=== PATIENT | female | born 1985 | race Caucasian/White ===

== ENCOUNTER 2017-10-30 21:26 | Emergency (ER) | payer BC ==
[2017-10-30 21:34] VITALS: BP 178/86
--- NOTE | 2017-10-30 22:52 | DR.GENAD ---
HPI - HPI Comment HPI Comment: NO FEVER. NOT ABLE TO EAT ALSO. - Complaint/Symptoms Chief Complaint Doctors Comments: DENTAL EXTRACTION. NAUSEA AND VOMITING. NOT HOLDING DOWN MEDICATION. Chief Complaint:: Unable to keep fluids down Self Treatment fo Chief Complaint: Patient taken x3 Hydrocodone 7.5 since tooth pulled yesterday. - Nurses notes reviewed Nurses Notes Review: Yes - Source History Provided: Patient - Mode of Arrival Mode of Arrival: Ambulatory - Timing Onset of Chief Complaint: 10/29/17 Came on: Suddenly - Duration Duration: Constant Duration: Days - Severity Severity: Moderate PMH - PMH Past Medical History: Yes Past Medical History: Migraines Past Surgical History: Yes Past Surgical History Comment: Dental work only - Family History History of Family Medical Conditions: Yes Family Medical History Comment: Mother: DM, Ovarian CA. Father: CHF - Social History Does patient currently use any type of tobacco product: No Have you used tobacco products in the last 12 months: No Type of Tobacco Use: None Does any household member use tobacco: No Alcohol Use: None Do you use any recreational Drugs:: No Lives With: Spouse Lives Where: Home - infectious screening In the last 2 months have you had wt loss of >10#?: NO Have you had fever, night sweats or hemotysis?: No Have you traveled outside the country in the last 6 months?: No ROS - Review of Systems Constitutional: Weakness Eyes: No Symptoms Reported. negative: Eye Pain, Discharge ENTM: No Symptoms Reported, Mouth Pain, Mouth Swelling. negative: Ear Pain, Nose Discharge, Nose Congestion, Loose Teeth (TOOTH EXTRACTION) Respiratoy: No Symptoms Reported Cardiovascular: No Symptoms Reported Gastrointestinal/Abdominal: No Symptoms Reported Genitourinary: No Symptoms Reported Neurological: No Symptoms Reported Musculoskeletal: No Symptoms Reported Integumentary: No Symptoms Reported Hematologic/Lymphatic: No Symptoms Reported Endocrine: No Symptoms Reported All Other Systems: Reviewed and Negative PE - Vital Signs Vitals: Temperature 98 F Pulse Rate 98 Respiratory Rate 18 Blood Pressure 178/86 O2 Sat by Pulse Oximetry 98 - General Limitations: No Limitations General Appearance: Alert - Head Head Exam: Normal Inspection - Eyes Eye exam: Normal Appearance - ENT ENT Exam: Normal External Ear Exam External Ear Exam: Normal External Inspection TM/Canal Exam: Bilateral Normal Nose Exam: Normal Nose Exam Mouth Exam: Other (TENDERNESS OVER AREA OF EXTRACTION.). negative: Trismus Throat Exam: Normal Inspection - Neck Neck Exam: Normal Inspection - Chest Chest Inspection: Symmetric Chest Wall Rise - Respiratory Respiratory Exam: Normal Lung Sounds Bilat Respiratory Exam: Bilateral Clear to Auscultation - Cardiovascular Cardiovascular Exam: Regular Rate, Normal Rhythm, Normal Heart Sounds - Abdominal Exam Abdominal Exam: Normal Bowel Sounds, Soft. negative: Tenderness - Extremities Extremities Exam: Normal Inspection - Back Back Exam: Normal Inspection - Neurologic Neurological Exam: Alert, Oriented X3 - Psychiatric Psychiatric Exam: Normal Affect, Normal Mood - Skin Skin Exam: Erythema Course - Treatment Treatment: DENTAL PAIN, NAUSEA/VOMITING - Education/Counseling Education/Counseling: Patient, Family, Education Educated On: Diagnosis, Needs for Follow Up ROR - Labs Reviewed Laboratory Results Reviewed?: Yes Result Diagrams: 10/30/17 22:10 10/30/17 23:10 Laboratory: WBC 14.4 X10^3/uL (3.6-10.0) H 10/30/17 22:10 RBC 4.64 X10^6/uL (3.5-5.4) 10/30/17 22:10 Hgb 13.1 g/dL (12.0-16.0) 10/30/17 22:10 Hct 39.1 % (36.0-47.0) 10/30/17 22:10 MCV 84.2 fL (80.0-100.0) 10/30/17 22:10 MCH 28.3 pg (27.0-34.0) 10/30/17 22:10 MCHC 33.6 g/dL (33.0-35.0) 10/30/17 22:10 RDW 13.9 % (11.6-16.5) 10/30/17 22:10 Plt Count 263 X10^3/uL (150.0-450.0) 10/30/17 22:10 MPV 8.8 fL (7.4-11.0) 10/30/17 22:10 Neut % 83.1 % (42.0-75.0) H 10/30/17 22:10 Lymph % 12.8 % (21.0-51.0) L 10/30/17 22:10 [place] % 3.3 % (0.0-13.0) 10/30/17 22:10 Eos % 0.2 % (0.9-2.9) L 10/30/17 22:10 Baso % 0.6 % (0.2-1.0) 10/30/17 22:10 Neut # 12.0 x10^3/uL (2.2-4.8) H 10/30/17 22:10 Lymph # 1.8 X10^3/uL (1.3-2.9) 10/30/17 22:10 [place] # 0.5 x10^3/uL (0.3-0.8) 10/30/17 22:10 Eos # 0.0 x10^3/uL (0.0-0.2) 10/30/17 22:10 Baso # 0.1 X10^3/uL (0.0-0.1) 10/30/17 22:10 Absolute Nucleated RBC 0.1 /100WBC 10/30/17 22:10 Sodium 141 mmol/L (136-145) 10/30/17 23:10 Corrected Sodium TNP 10/30/17 23:10 Potassium 3.8 mmol/L (3.5-5.1) 10/30/17 23:10 Chloride 103 mmol/L (98-107) 10/30/17 23:10 Carbon Dioxide 25.2 mmol/L (21-32) 10/30/17 23:10 BUN 7 mg/dL (7-18) 10/30/17 23:10 Creatinine 0.88 mg/dL (0.55-1.02) 10/30/17 23:10 Est GFR (MDRD) Af Amer > 60 (>60) 10/30/17 23:10 Est GFR (MDRD) Non-Af > 60 (>60) 10/30/17 23:10 Glucose 100 mg/dL (65-99) H 10/30/17 23:10 Calcium 9.0 mg/dL (8.5-10.1) 10/30/17 23:10 Corrected Calcium TNP 10/30/17 23:10 Total Bilirubin 0.30 mg/dL (0.2-1.0) 10/30/17 23:10 AST 16 Units/L (15-37) 10/30/17 23:10 ALT 22 Units/L (12-78) 10/30/17 23:10 Alkaline Phosphatase 103 Units/L (46-116) 10/30/17 23:10 Total Protein 8.3 g/dL (6.4-8.2) H 10/30/17 23:10 Albumin 3.9 g/dL (3.4-5.0) 10/30/17 23:10 Globulin 4.4 g/dL (2.5-4.5) 10/30/17 23:10 Albumin/Globulin Ratio 0.9 Ratio (1.1-2.1) L 10/30/17 23:10 HCG, Qual Negative <10 mIU/mL 10/31/17 00:05 Specimen Type Clean catch urine 10/31/17 00:45 Urine Color Yellow (YELLOW) 10/31/17 00:45 Urine Appearance Slightly hazy (CLEAR) 10/31/17 00:45 Urine pH 6.5 (5.0 - 8.0) 10/31/17 00:45 Ur Specific [place] 1.015 (1.000-1.030) 10/31/17 00:45 Urine Protein Negative (NEGATIVE) 10/31/17 00:45 Urine Glucose (UA) Negative (NEGATIVE) 10/31/17 00:45 Urine Ketones 3+ (NEGATIVE) 10/31/17 00:45 Urine Occult Blood Negative (NEGATIVE) 10/31/17 00:45 Urine Nitrite Negative (NEGATIVE) 10/31/17 00:45 Urine Bilirubin Negative (NEGATIVE) 10/31/17 00:45 Urine Urobilinogen Normal (NORMAL) 10/31/17 00:45 Ur Leukocyte Esterase Negative (NEGATIVE) 10/31/17 00:45 Urine RBC 0-3 /HPF (NEGATIVE) 10/31/17 00:45 Urine WBC 0-3 /HPF (NEGATIVE) 10/31/17 00:45 Ur Squamous Epith Cells Few /HPF (NEGATIVE) 10/31/17 00:45 Urine Bacteria Negative /HPF (NEGATIVE) 10/31/17 00:45 Ur Culture Indicated? No/not indicated 10/31/17 00:45 - Diagnosis Discharge Problem: Gingivitis, Nausea & vomiting, Pain, dental - Discharge Plan Disposition: HOME, SELF-CARE Condition: Stable Prescriptions: Amoxicillin [Amoxil 875 mg] 875 mg PO Q12H #20 tab Ondansetron [Zofran ODT 8 mg] 8 mg PO Q8H PRN #12 tab PRN Reason: Nausea/Vomiting - Follow ups/Referrals Follow ups/Referrals: Fran Vieira [Primary Care Provider] - 3 days - Instructions Instructions: Dental Caries, [id number], Nausea and Vomiting, Adult, Easy-to- Read Additional Instructions: RETURN TO ED IF WORSE.
[2017-10-30] MEDS ORDERED: ZOFRAN INJ 4 MG VIAL IM ONE (22:54)
[2017-10-30] MEDS ORDERED: ZOFRAN INJ 4 MG VIAL ONE (23:14)
[2017-10-30 23:35] LABS: BASOPHILS # (AUTO) 0.1 X10^3/uL (0.0-0.1); BASOPHILS % (AUTO) 0.6 % (0.2-1.0); EOSINOPHILS % (AUTO) 0.2 % (0.9-2.9); HEMATOCRIT 39.1 % (36.0-47.0); HEMOGLOBIN 13.1 g/dL (12.0-16.0); LYMPHOCYTES # (AUTO) 1.8 X10^3/uL (1.3-2.9); LYMPHOCYTES % (AUTO) 12.8 % (21.0-51.0); MEAN CORPUSCULAR HEMOGLOBIN 28.3 pg (27.0-34.0); MEAN CORPUSCULAR HGB CONC 33.6 g/dL (33.0-35.0); MEAN CORPUSCULAR VOLUME 84.2 fL (80.0-100.0); MEAN PLATELET VOLUME 8.8 fL (7.4-11.0); MONOCYTES # (AUTO) 0.5 x10^3/uL (0.3-0.8); MONOCYTES % (AUTO) 3.3 % (0.0-13.0); NEUTROPHILS % (AUTO) 83.1 % (42.0-75.0); PLATELET COUNT 263 X10^3/uL (150.0-450.0); RED BLOOD COUNT 4.64 X10^6/uL (3.5-5.4); RED CELL DISTRIBUTION WIDTH 13.9 % (11.6-16.5); WHITE BLOOD COUNT 14.4 X10^3/uL (3.6-10.0)
[2017-10-30 23:40] LABS: ALANINE AMINOTRANSFERASE 22 Units/L (12-78); ALBUMIN 3.9 g/dL (3.4-5.0); ALKALINE PHOSPHATASE 103 Units/L (46-116); ASPARTATE AMINO TRANSFERASE 16 Units/L (15-37); BLOOD UREA NITROGEN 7 mg/dL (7-18); CARBON DIOXIDE 25.2 mmol/L (21-32); CHLORIDE 103 mmol/L (98-107); CREATININE 0.88 mg/dL (0.55-1.02); SODIUM 141 mmol/L (136-145); TOTAL PROTEIN 8.3 g/dL (6.4-8.2); eGFR BLACK RACES > 60 (>60); eGFR NON BLACK RACES > 60 (>60)
[2017-10-31 00:52] LABS: BILIRUBIN,URINE NEGATIVE (NEGATIVE); BLOOD/HEMOGLOBIN,URINE NEGATIVE (NEGATIVE); GLUCOSE, URINE NEGATIVE (NEGATIVE); KETONES,URINE 3+ (NEGATIVE); LEUKOCYTE ESTERASE ,URINE NEGATIVE (NEGATIVE); NITRITES,URINE NEGATIVE (NEGATIVE); PH,URINE 6.5 (5.0 - 8.0); PROTEIN,URINE NEGATIVE (NEGATIVE); UROBILINOGEN,URINE NORMAL (NORMAL)
[2017-10-31 01:02] LABS: SERUM PREGNANCY TEST, QUAL NEGATIVE <10 mIU/mL
[2017-10-31 01:03] LABS: APPEARANCE,URINE SLIGHTLY HAZY (CLEAR); BACTERIA,URINE NEGATIVE /HPF (NEGATIVE); COLOR,URINE YELLOW (YELLOW); RBC,URINE 0-3 /HPF (NEGATIVE); SQUAMOUS EPITHELIAL CELL,UR FEW /HPF (NEGATIVE)
== END 2017-10-31 00:54 | disposition home or self-care (01) ==
LOC: ER 21:40
DX: K05.10 Chronic gingivitis, plaque induced (principal); R11.2 Nausea with vomiting, unspecified; K08.89 Other specified disorders of teeth and supporting structures
CPT/HCPCS: 36415; 80053; 81001; 84703; 85025; 96372; 99282; J2405